=== PATIENT | male | born 1985 | race Caucasian/White ===

== ENCOUNTER 2022-12-07 07:05 | Day surgery (SDC) | payer OTHER ==
[~2022-12-07] VITALS: Ht 182.9 cm; Wt 92.0 kg
[2022-12-07] VITALS (273 sets, daily range): BP systolic 93–156; BP diastolic 49–92
[2022-12-07 08:10] LABS: BASO% 0.1 % (0-3); HEMATOCRIT 44.7 % (39.0-50.0); HEMOGLOBIN 15.4 g/dl (14.0-18.0); IMMATURE GRANULOCYTES 0.1 % (0.0-5.0); LYMPH% 18.8 % (15-41); MEAN CELL VOLUME 79.8 fL CALC (80.0-100.0); MEAN CORPUSCULAR HGB 27.5 pG CALC (26.0-32.0); MEAN CORPUSCULAR HGB CONC 34.5 g/dL CAL (32.0-36.0); NEUT# 6.7 thou/uL (1.82-7.42); RED BLOOD COUNT 5.6 mill/uL (4.70-6.10); RED CELL DISTRI WIDTH 12.8 % (11.5-15.5)
[2022-12-07 08:33] LABS: ALBUMIN 4.6 g/dL (3.2-5.0); ALKALINE PHOSPHATASE 61 u/l (38-126); ANION GAP 9 (6-22 (CALC)); BILIRUBIN, TOTAL 0.8 mg/dL (0.0-1.4); BUN 13 mg/dL (9-20); BUN/CREATININE RATIO 17 (12-20 (CALC)); CARBON DIOXIDE 30 mmol/l (22-30); CHLORIDE 107 mmol/l (95-108); CREATININE 0.8 mg/dL (0.7-1.3); GFR FOR AFR.AMER. > 60 ML/MIN (>=60 (CALC)); GFR OTHER RACES > 60 ML/MIN (>=60 (CALC)); POTASSIUM 4.2 mmol/l (3.5-5.1); SGOT/AST 25 u/l (17-59); SODIUM 141 mmol/l (137-146)
[2022-12-07] MEDS ORDERED: GABAPENTIN600 MG PO (09:51)
[2022-12-07] MEDS ORDERED: PROTONIX20 M1 PO (09:51)
[2022-12-07] MEDS ORDERED: TESTOST CYP100 MG/ML IM (09:52)
[2022-12-07] MEDS ORDERED: KLONOPIN2 MG PO (14:30)
[2022-12-07] MEDS ORDERED: CLONIDINE0.1 MG PO (14:30)
[2022-12-07] MEDS ORDERED: NALTREXONE50 MG PO (14:30)
[2022-12-08 03:40] VITALS: BP 130/69
[2022-12-08 06:42] LABS: BASO% 0.1 % (0-3); HEMATOCRIT 46.3 % (39.0-50.0); HEMOGLOBIN 15.9 g/dl (14.0-18.0); IMMATURE GRANULOCYTES 0.1 % (0.0-5.0); LYMPH% 5.3 % (15-41); MEAN CELL VOLUME 79.8 fL CALC (80.0-100.0); MEAN CORPUSCULAR HGB 27.4 pG CALC (26.0-32.0); MEAN CORPUSCULAR HGB CONC 34.3 g/dL CAL (32.0-36.0); MONO% 3.3 % (2-13); NEUT# 12.27 thou/uL (1.82-7.42); NEUT% 91.2 % (42-76); RED BLOOD COUNT 5.8 mill/uL (4.70-6.10); RED CELL DISTRI WIDTH 12.6 % (11.5-15.5)
[2022-12-08 06:49] LABS: ALBUMIN 4.4 g/dL (3.2-5.0); ALKALINE PHOSPHATASE 65 u/l (38-126); BUN 12 mg/dL (9-20); BUN/CREATININE RATIO 16 (12-20 (CALC)); CHLORIDE 108 mmol/l (95-108); CREATININE 0.8 mg/dL (0.7-1.3); GFR FOR AFR.AMER. > 60 ML/MIN (>=60 (CALC)); GFR OTHER RACES > 60 ML/MIN (>=60 (CALC)); MAGNESIUM 2.3 mg/dL (1.6-2.3); POTASSIUM 4.5 mmol/l (3.5-5.1); SGOT/AST 28 u/l (17-59); SODIUM 142 mmol/l (137-146); TOTAL PROTEIN 6.8 g/dL (6.3-8.2)
[2022-12-08 06:59] LABS: ANION GAP 16 (6-22 (CALC)); BILIRUBIN, TOTAL 1.3 mg/dL (0.0-1.4); CARBON DIOXIDE 23 mmol/l (22-30)
[2022-12-08 07:30] VITALS: BP 125/41
[2022-12-08 07:53] VITALS: BP 125/41
== END 2022-12-08 14:50 | disposition home or self-care (01) | DRG 897 ==
LOC: MS2 07:05 → ANR 07:05 → MS2 16:02 → ANR 12-08 14:50
PROVIDERS: ATTEND Anesthesiology Critical Care Medicine
DX: F11.20 Opioid dependence, uncomplicated (principal)
CPT/HCPCS: J0131; J2060; J2354; J3475